=== PATIENT | female | born 1960 | race African-American/Black ===

== ENCOUNTER 2018-01-01 02:39 | Observation (INO) ==
[2018-01-02 12:40] VITALS: BP 131/66
== END 2018-01-02 12:20 | disposition home or self-care (01) ==
LOC: N.ED 02:39 → N.EDINP 02:39 → SUATTDRO 06:08 → N.EDINP 08:15 → N.4E 08:40
PROVIDERS: ADMIT Internal Medicine; ATTEND Internal Medicine